=== PATIENT | male | born 1955 | race Caucasian/White ===

== ENCOUNTER 2019-03-10 07:20 | Inpatient (IN) | payer BC ==
[~2019-03-10] VITALS: Ht 195.6 cm; Wt 98.9 kg
[~2019-03-10 07:20] MED LIST: ASA81 PO; ASPI1CPM6 PO; RANI-281 PO
[2019-03-10 07:28] VITALS: BP_SYST 140
[2019-03-10] MEDS ORDERED: RANI-362 PO (07:48)
[2019-03-10] MEDS ORDERED: ASA81 PO (07:48)
[2019-03-10] MEDS ORDERED: NACL 0.9% 1,000 ML IV ONE (07:48)
[2019-03-10] MEDS ORDERED: ASPI1CPM6 PO ×2 (07:48→09:52)
[2019-03-10] MEDS ORDERED: ASPIRIN 81 MG TAB.CHEW PO ONE ×2 (08:00→11:45)
[2019-03-10 08:19] LABS: BILIRUBIN,URINE NEGATIVE (NEGATIVE); CLARITY/URINE CLEAR (CLEAR); COLOR,URINE YELLOW (YELLOW); GLUCOSE,URINE NEGATIVE (NEGATIVE); KETONES,URINE NEGATIVE (NEGATIVE); LEUKOCYTE ESTERASE ,URINE NEGATIVE (NEGATIVE); NITRITE, URINE NEGATIVE (NEGATIVE); PH,URINE 5.5 (5.0-8.0); PROTEIN URINE NEGATIVE (NEGATIVE); UROBILINOGEN,URINE 0.2 (0.2-1.0)
[2019-03-10 08:20] LABS: BLOOD, URINE TRACE (NEGATIVE)
[2019-03-10 08:25] LABS: BARBITURATE, URINE NEGATIVE (NEG <=200); BENZODIAZEPINE, URINE NEGATIVE (NEG <=150); CANNABINOID, URINE NEGATIVE (NEG <=50); COCAINE, URINE NEGATIVE (NEG <=150); METHAMPHETAMINES SCREEN,URINE NEGATIVE (NEG <=500); OPIATE, URINE NEGATIVE (NEG <=100); PHENCYCLIDINE SCREEN,URINE NEGATIVE (NEG <=25); UR TRICYCLIC ANTIDEPRESSANTS NEGATIVE (NEG <=300); URINE AMPHETAMINE NEGATIVE (NEG <=500); URINE METHADONE NEGATIVE (NEG <=200); URINE OXYCODONE SCREEN NEGATIVE (NEG <=100); URINE PROPOXYPHENE SCREEN NEGATIVE (NEG <=300)
[2019-03-10 08:32] LABS: BASOPHILS % (AUTO) 0.4 % (0.0-2.0); EOSINOPHILS # (AUTO) 0.2 K/uL (0.0-0.4); EOSINOPHILS % (AUTO) 3.6 % (0.0-4.0); HEMOGLOBIN 16.1 g/dL (14.0-18.0); LYMPHOCYTES # (AUTO) 1.4 K/uL (1.0-5.5); LYMPHOCYTES % (AUTO) 22.6 % (20.5-51.5); MEAN CORPUSCULAR HEMOGLOBIN 33 pg (27-31); MEAN CORPUSCULAR HGB CONC 34 % (32-36); MEAN CORPUSCULAR VOLUME 95 fL (79.0-98.0); MONOCYTES # (AUTO) 0.4 K/uL (0.0-1.0); MONOCYTES % (AUTO) 6.6 % (1.7-9.3); NEUTROPHILS # (AUTO) 4.1 K/uL (1.8-7.7); NEUTROPHILS % (AUTO) 66.8 % (40.0-70.0); PLATELET COUNT (AUTO) 147 K/uL (130-430); RED BLOOD CELL COUNT(AUTO) 4.93 MIL/uL (4.2-6.2); RED CELL DISTRIBUTION WIDTH 12.8 % (9.0-15.0); WHITE BLOOD COUNT (AUTO) 6.1 K/uL (4.8-10.8)
[2019-03-10 08:33] LABS: RBC,URINE 0-3 /HPF (0-3); WBC,URINE 0-3 /HPF (0-3)
[2019-03-10 08:34] LABS: BACTERIA,URINE RARE /HPF (None Seen)
[2019-03-10 08:37] LABS: ANION GAP 6 (5-15); CALCIUM 9.7 mg/dL (8.4-11.0); CHLORIDE 106 mmol/L (98-107); CREATININE 1.28 mg/dL (0.55-1.30); GFR AFRICAN AMERICAN 73 mL/min (>90); GLUCOSE 130 mg/dL (70-99); POTASSIUM 4.1 mmol/L (3.5-5.1); SODIUM SERUM 139 mmol/L (136-145); UREA NITROGEN, BLOOD 16 mg/dL (8-21)
[2019-03-10 08:40] LABS: ALANINE AMINOTRANSFERASE 22 U/L (12-78); AMYLASE 68 U/L (0-100); ASPARTATE AMINOTRANSFERASE 17 U/L (10-37); CHOLESTEROL 178 mg/dL (<200); HDL CHOLESTEROL 42 mg/dL (>45); LDL CHOLESTEROL 113 mg/dL (<100); LIPASE 149 U/L (73-393); TOTAL BILIRUBIN 0.8 mg/dL (0.0-1.0); TRIGLYCERIDES 176 mg/dL (30-150)
[2019-03-10 08:41] LABS: ALCOHOL, BLOOD < 3 mg/dL (<10)
[2019-03-10 08:42] LABS: PROTHROMBIN TIME 9.9 SECS (9.5-12.5)
[2019-03-10] MEDS ORDERED: LISI-209 PO (09:52)
[2019-03-10] MEDS ORDERED: RANI-281 PO (09:52)
[2019-03-10] MEDS ORDERED: ASPI-1155 PO (09:52)
[2019-03-10 10:24] VITALS: BP_SYST 149
[2019-03-10 11:20] VITALS: BP_SYST 119
[2019-03-10] MEDS ORDERED: LISINOPRIL 5 MG TABLET PO ONE (11:45)
[2019-03-10] MEDS ORDERED: DIPYRIDAMOLE PO SCH (11:45)
[2019-03-10] MEDS ORDERED: ASPIRIN PO ONE (11:45)
[2019-03-10] MEDS ORDERED: ASPIRIN PO SCH (11:45)
[2019-03-10] MEDS ORDERED: DIPYRIDAMOLE PO ONE (11:45)
[2019-03-10 15:09] VITALS: BP_SYST 116
[2019-03-10 18:30] VITALS: BP_SYST 116
[2019-03-10 20:00] VITALS: BP_SYST 121
[2019-03-10] MEDS: APIXABAN 2.5 MG TABLET PO SCH (21:00)
[2019-03-11] VITALS: BP_SYST 125
[2019-03-11] MEDS ORDERED: DIPHENHYDRAMINE HCL 50 MG CAPSULE PO PRN (00:15)
[2019-03-11 08:01] VITALS: BP_SYST 142
[2019-03-11] MEDS: APIXABAN 2.5 MG TABLET PO SCH (08:09)
[2019-03-11] MEDS: ASPIRIN 81 MG TAB.CHEW PO SCH ×2 (08:10→09:00)
[2019-03-11] MEDS ORDERED: LISINOPRIL 5 MG TABLET PO SCH (09:00)
[2019-03-11] MEDS ORDERED: ASPIRIN 81 MG TAB.CHEW PO SCH (09:00)
[2019-03-11] MEDS ORDERED: DIPYRIDAMOLE PO SCH (09:00)
[2019-03-11] MEDS ORDERED: FAMOTIDINE 20 MG TABLET PO SCH (09:00)
[2019-03-11] MEDS ORDERED: ASPIRIN PO SCH (09:00)
[2019-03-11 13:04] VITALS: BP_SYST 129
[2019-03-11 13:08] VITALS: BP_SYST 129
== END 2019-03-11 13:30 | disposition home or self-care (01) | DRG 69 ==
LOC: SED 07:20 → STU 09:18 → SMU 03-11 10:24
PROVIDERS: ADMIT Internal Medicine Hospice and Palliative Medicine; ATTEND Internal Medicine Hospice and Palliative Medicine
DX: G45.9 Transient cerebral ischemic attack, unspecified (principal); K21.9 Gastro-esophageal reflux disease without esophagitis; I10 Essential (primary) hypertension; G62.9 Polyneuropathy, unspecified; G47.33 Obstructive sleep apnea (adult) (pediatric); Z90.49 Acquired absence of other specified parts of digestive tract; Z88.1 Allergy status to other antibiotic agents; Z79.82 Long term (current) use of aspirin; Z79.899 Other long term (current) drug therapy; Z82.49 Family history of ischemic heart disease and other diseases of the circulatory system; I69.334 Monoplegia of upper limb following cerebral infarction affecting left non-dominant side
CPT/HCPCS: 36415; 70450-TC; 70551; 71045; 80053; 80061; 80307; 81000-TC; 82150-TC; 82550-TC; 83690-TC; 84484; 85025; 85610-TC; 85730-TC; 93306; 93880; 96360; 99285; G0378; G0482; J7030; Q0163